=== PATIENT | male | born 1960 | race Two or more races ===

== ENCOUNTER 2017-07-31 09:21 | Outpatient (CLI) | payer OTHER | END 2017-07-31 15:45 | disposition home or self-care (01) | LOC: LAB 09:21 | DX: E03.9 Hypothyroidism, unspecified (principal); E88.9 Metabolic disorder, unspecified; E11.8 Type 2 diabetes mellitus with unspecified complications; E78.5 Hyperlipidemia, unspecified; D68.9 Coagulation defect, unspecified; N41.9 Inflammatory disease of prostate, unspecified; D64.9 Anemia, unspecified ==

== ENCOUNTER → 2017-09-10 | Outpatient (CLI) | payer OTHER | END | disposition home or self-care (01) | LOC: NUCLEAR 11:32 | DX: I65.23 Occlusion and stenosis of bilateral carotid arteries (principal); I87.2 Venous insufficiency (chronic) (peripheral); I73.9 Peripheral vascular disease, unspecified ==

== ENCOUNTER → 2017-09-14 07:24 | Outpatient (CLI) | payer OTHER | END | disposition home or self-care (01) | LOC: LAB 07:24 | DX: E88.9 Metabolic disorder, unspecified (principal); E78.5 Hyperlipidemia, unspecified ==

== ENCOUNTER → 2017-11-27 08:56 | Outpatient (CLI) | payer OTHER | END | disposition home or self-care (01) | LOC: LAB 08:56 | DX: E78.4 Other hyperlipidemia (principal); R73.09 Other abnormal glucose ==

== ENCOUNTER → 2018-03-11 08:01 | Outpatient (CLI) | payer OTHER | END | disposition home or self-care (01) | LOC: LAB 08:01 | DX: E88.89 Other specified metabolic disorders (principal); E78.4 Other hyperlipidemia; E11.9 Type 2 diabetes mellitus without complications ==

== ENCOUNTER 2018-05-14 08:24 | Outpatient (CLI) | payer OTHER | END 2018-05-14 08:38 | disposition home or self-care (01) | LOC: LAB 08:24 | DX: D64.89 Other specified anemias (principal); E88.89 Other specified metabolic disorders; E55.9 Vitamin D deficiency, unspecified; E56.1 Deficiency of vitamin K; E78.49 Other hyperlipidemia; E03.8 Other specified hypothyroidism; N41.8 Other inflammatory diseases of prostate ==

== ENCOUNTER 2018-07-27 08:06 | Outpatient (CLI) | payer OTHER | END 2018-07-27 09:28 | disposition home or self-care (01) | LOC: LAB 08:06 | DX: D64.89 Other specified anemias (principal); E88.89 Other specified metabolic disorders; E13.21 Other specified diabetes mellitus with diabetic nephropathy; E78.49 Other hyperlipidemia; N41.8 Other inflammatory diseases of prostate; E03.8 Other specified hypothyroidism ==

== ENCOUNTER → 2018-12-05 10:08 | Outpatient (CLI) | payer OTHER | END | disposition home or self-care (01) | LOC: LAB 10:08 | DX: D64.89 Other specified anemias (principal); E03.8 Other specified hypothyroidism; E78.49 Other hyperlipidemia; D68.8 Other specified coagulation defects; E11.9 Type 2 diabetes mellitus without complications; E88.89 Other specified metabolic disorders; N41.8 Other inflammatory diseases of prostate ==

== ENCOUNTER 2019-03-24 08:30 | Outpatient (CLI) | payer OTHER | END 2019-03-24 15:48 | disposition home or self-care (01) | LOC: LAB 08:30 | DX: E88.89 Other specified metabolic disorders (principal); E13.69 Other specified diabetes mellitus with other specified complication; E78.49 Other hyperlipidemia; N41.8 Other inflammatory diseases of prostate ==

== ENCOUNTER → 2019-09-12 08:09 | Outpatient (CLI) | payer OTHER | END | disposition home or self-care (01) | LOC: LAB 08:09 | DX: E88.89 Other specified metabolic disorders (principal); E78.49 Other hyperlipidemia; E13.69 Other specified diabetes mellitus with other specified complication ==

== ENCOUNTER 2019-12-16 10:40 | Outpatient (CLI) | payer OTHER | END 2019-12-16 15:00 | disposition home or self-care (01) | LOC: LAB 10:40 | DX: E88.89 Other specified metabolic disorders (principal); E13.69 Other specified diabetes mellitus with other specified complication; N41.8 Other inflammatory diseases of prostate; E78.49 Other hyperlipidemia ==

== ENCOUNTER 2019-12-20 10:05 | Outpatient (CLI) | payer OTHER | END 2019-12-20 12:54 | disposition home or self-care (01) | LOC: LAB 10:05 | DX: M54.5 Low back pain (principal); E88.81 Metabolic syndrome and other insulin resistance; E78.49 Other hyperlipidemia; D64.89 Other specified anemias; E11.9 Type 2 diabetes mellitus without complications ==

== ENCOUNTER 2020-02-08 08:19 | Outpatient (CLI) | payer OTHER | END 2020-02-08 08:31 | disposition home or self-care (01) | LOC: RAD 08:19 | PROVIDERS: ATTEND Obstetrics & Gynecology Maternal & Fetal Medicine | DX: M25.561 Pain in right knee (principal) ==

== ENCOUNTER 2020-02-27 08:43 | Outpatient (CLI) | payer OTHER | END 2020-02-27 09:59 | disposition home or self-care (01) | LOC: LAB 08:43 | PROVIDERS: ATTEND Urology | DX: D64.89 Other specified anemias (principal); N41.8 Other inflammatory diseases of prostate; E03.8 Other specified hypothyroidism; E88.89 Other specified metabolic disorders; E13.69 Other specified diabetes mellitus with other specified complication; E78.49 Other hyperlipidemia ==

== ENCOUNTER 2020-03-30 12:57 | Outpatient (CLI) | payer OTHER | END 2020-03-30 15:59 | disposition home or self-care (01) | LOC: LAB 12:57 | PROVIDERS: ATTEND Orthopaedic Surgery | DX: Z03.818 Encounter for observation for suspected exposure to other biological agents ruled out (principal) ==

== ENCOUNTER 2020-07-26 08:07 | Outpatient (CLI) | payer OTHER | END 2020-07-26 15:18 | disposition home or self-care (01) | LOC: LAB 08:07 | PROVIDERS: ATTEND Surgery | DX: E88.89 Other specified metabolic disorders (principal); E78.49 Other hyperlipidemia; E11.9 Type 2 diabetes mellitus without complications; N41.8 Other inflammatory diseases of prostate ==

== ENCOUNTER 2020-08-02 08:16 | Outpatient (CLI) | payer OTHER | END 2020-08-02 15:37 | disposition home or self-care (01) | LOC: RAD 08:16 | DX: M25.512 Pain in left shoulder (principal) ==

== ENCOUNTER 2020-09-05 08:48 | Outpatient (CLI) | payer OTHER | END 2020-09-05 08:56 | disposition home or self-care (01) | LOC: LAB 08:48 | DX: D64.89 Other specified anemias (principal); E88.89 Other specified metabolic disorders; M60.88 Other myositis, other site ==

== ENCOUNTER 2020-09-14 08:53 | Outpatient (CLI) | payer OTHER | END 2020-09-14 15:25 | disposition home or self-care (01) | LOC: LAB 08:53 | PROVIDERS: ATTEND Orthopaedic Surgery | DX: D64.89 Other specified anemias (principal); N39.0 Urinary tract infection, site not specified; D68.8 Other specified coagulation defects; B95.62 Methicillin resistant Staphylococcus aureus infection as the cause of diseases classified elsewhere; E88.89 Other specified metabolic disorders; Z03.818 Encounter for observation for suspected exposure to other biological agents ruled out ==

== ENCOUNTER → 2020-09-18 | Outpatient (CLI) | payer OTHER | END | disposition home or self-care (01) | LOC: RAD 10:15 | PROVIDERS: ATTEND Orthopaedic Surgery | DX: I10 Essential (primary) hypertension (principal) ==

== ENCOUNTER 2020-10-17 12:33 | Outpatient (CLI) | payer OTHER | END 2020-10-17 18:50 | disposition home or self-care (01) | LOC: LAB 12:33 | PROVIDERS: ATTEND Colon & Rectal Surgery | DX: E03.8 Other specified hypothyroidism (principal); E78.49 Other hyperlipidemia; D64.89 Other specified anemias; D68.8 Other specified coagulation defects; N41.8 Other inflammatory diseases of prostate; M85.88 Other specified disorders of bone density and structure, other site ==

== ENCOUNTER 2020-11-13 09:26 | Outpatient (CLI) | payer OTHER | END 2020-11-13 10:14 | disposition home or self-care (01) | LOC: RAD 09:26 | PROVIDERS: ATTEND Specialist | DX: M75.102 Unspecified rotator cuff tear or rupture of left shoulder, not specified as traumatic (principal) ==

== ENCOUNTER 2020-12-23 13:39 | Outpatient (CLI) | payer OTHER | END 2020-12-23 18:00 | disposition home or self-care (01) | LOC: LAB 13:39 | DX: M25.511 Pain in right shoulder (principal) ==

== ENCOUNTER → 2020-12-28 12:41 | Outpatient (CLI) | payer OTHER | END | disposition home or self-care (01) | LOC: LAB 12:41 | PROVIDERS: ATTEND Otolaryngology Otology & Neurotology | DX: Z00.00 Encounter for general adult medical examination without abnormal findings (principal) ==

== ENCOUNTER 2021-01-01 09:19 | Outpatient (CLI) | payer OTHER | END 2021-01-01 12:03 | disposition home or self-care (01) | LOC: LAB 09:19 | DX: Z03.818 Encounter for observation for suspected exposure to other biological agents ruled out (principal) ==

== ENCOUNTER 2021-01-07 11:43 | Outpatient (CLI) | payer OTHER | END 2021-01-07 15:00 | disposition home or self-care (01) | LOC: LAB 11:43 | PROVIDERS: ATTEND Emergency Medicine Pediatric Emergency Medicine | DX: D64.89 Other specified anemias (principal); Z20.818 Contact with and (suspected) exposure to other bacterial communicable diseases; E03.8 Other specified hypothyroidism; E88.89 Other specified metabolic disorders; E13.69 Other specified diabetes mellitus with other specified complication; D68.8 Other specified coagulation defects; N41.8 Other inflammatory diseases of prostate ==

== ENCOUNTER 2021-01-16 09:58 | Outpatient (CLI) | payer OTHER | END 2021-01-16 10:03 | disposition home or self-care (01) | LOC: LAB 09:58 | PROVIDERS: ATTEND General Practice | DX: Z20.828 Contact with and (suspected) exposure to other viral communicable diseases (principal) ==

== ENCOUNTER 2021-02-22 08:00 | Outpatient (CLI) | payer OTHER | END 2021-02-22 08:15 | disposition home or self-care (01) | LOC: PPH VACUNA | PROVIDERS: ATTEND Emergency Medicine Pediatric Emergency Medicine | DX: Z23 Encounter for immunization (principal) ==

== ENCOUNTER 2021-03-27 07:57 | Outpatient (CLI) | payer OTHER | END 2021-03-27 10:29 | disposition home or self-care (01) | LOC: LAB 07:57 | PROVIDERS: ATTEND Internal Medicine | DX: E88.89 Other specified metabolic disorders (principal); E78.49 Other hyperlipidemia ==

== ENCOUNTER → 2021-12-10 | Outpatient (CLI) | payer OTHER | END | disposition home or self-care (01) | LOC: LAB 09:07 | PROVIDERS: ATTEND Orthopaedic Surgery | DX: E88.9 Metabolic disorder, unspecified (principal); M85.80 Other specified disorders of bone density and structure, unspecified site; E55.9 Vitamin D deficiency, unspecified; E56.1 Deficiency of vitamin K; E78.49 Other hyperlipidemia; N40.0 Benign prostatic hyperplasia without lower urinary tract symptoms ==

== ENCOUNTER 2022-02-25 15:15 | Outpatient (CLI) | payer OTHER | END 2022-02-25 16:07 | disposition home or self-care (01) | LOC: ASH CLINIC 15:15 | PROVIDERS: ATTEND Emergency Medicine | DX: U07.1 COVID-19 (principal) ==

== ENCOUNTER 2022-04-11 11:50 | Outpatient (CLI) | payer OTHER | END 2022-04-11 12:05 | disposition home or self-care (01) | LOC: RAD 11:50 | PROVIDERS: ATTEND Colon & Rectal Surgery | DX: M25.511 Pain in right shoulder (principal); M25.532 Pain in left wrist ==

== ENCOUNTER 2022-04-11 14:54 | Outpatient (CLI) | payer OTHER | END 2022-04-11 14:57 | disposition home or self-care (01) | LOC: NUCLEAR 14:54 | PROVIDERS: ATTEND Colon & Rectal Surgery | DX: I25.10 Atherosclerotic heart disease of native coronary artery without angina pectoris (principal) ==

== ENCOUNTER → 2022-04-11 | Outpatient (CLI) | payer OTHER | END | disposition home or self-care (01) | LOC: LAB 11:37 | PROVIDERS: ATTEND Colon & Rectal Surgery | DX: E88.9 Metabolic disorder, unspecified (principal); E11.9 Type 2 diabetes mellitus without complications; E78.5 Hyperlipidemia, unspecified; D72.829 Elevated white blood cell count, unspecified; E05.90 Thyrotoxicosis, unspecified without thyrotoxic crisis or storm; N40.0 Benign prostatic hyperplasia without lower urinary tract symptoms; N39.0 Urinary tract infection, site not specified ==

== ENCOUNTER 2022-08-19 08:22 | Outpatient (CLI) | payer OTHER | END 2022-08-19 08:26 | disposition home or self-care (01) | LOC: LAB 08:22 | PROVIDERS: ATTEND Colon & Rectal Surgery | DX: D64.89 Other specified anemias (principal); E03.8 Other specified hypothyroidism; E88.89 Other specified metabolic disorders; E11.9 Type 2 diabetes mellitus without complications; E78.49 Other hyperlipidemia; D68.8 Other specified coagulation defects; N41.9 Inflammatory disease of prostate, unspecified ==

== ENCOUNTER 2023-03-10 08:14 | Outpatient (CLI) | payer OTHER ==
[2023-03-10 09:54] LABS: ALBUMIN 3.8 gm/dL (3.4-5.0); BILIRUBIN TOTAL 1.7 mg/dL (0.3-1.2); BILIRUBIN,CONJUGATED 0.3 mg/dL (0.0-0.2); BILIRUBIN,UNCONJUGATED 1.4 mg/dL (0.0-0.6); CALCIUM 8.8 mg/dL (8.5-10.1); CHOL HDL RATIO 1.3 (0-5.0); CREATININE SERUM 1.21 mg/dL (0.70-1.30); GFR 60.96; MAGNESIUM 2.1 mg/dL (1.8-2.4); POTASSIUM 3.96 mEq/L (3.5-5.1); PROSTATIC SPECIFIC ANTIGEN 2.01 NG/ML (0.010-4.00); TOTAL PROTEIN 6.8 gm/dL (6.4-8.2)
== END 2023-03-10 12:30 | disposition home or self-care (01) ==
LOC: LAB 08:14
PROVIDERS: ATTEND Anesthesiology
DX: Z01.84 Encounter for antibody response examination (principal); E88.89 Other specified metabolic disorders; E11.9 Type 2 diabetes mellitus without complications; E78.49 Other hyperlipidemia

== ENCOUNTER 2023-06-24 07:33 | Outpatient (CLI) | payer OTHER ==
[2023-06-24 08:30] LABS: CHOL HDL RATIO 1.4 (0-5.0)
== END 2023-06-24 08:47 | disposition home or self-care (01) ==
LOC: LAB 07:33
PROVIDERS: ATTEND Colon & Rectal Surgery
DX: E88.9 Metabolic disorder, unspecified (principal); E78.5 Hyperlipidemia, unspecified

== ENCOUNTER 2023-12-11 10:51 | Outpatient (CLI) | payer OTHER ==
[2023-12-11 11:32] LABS: HEMATOCRIT 43.9 % (39.0-48.0); HEMOGLOBIN 15.1 g/dL (13-16.00); MEAN CORPUSCULAR HEMOGLOBIN 31.7 pg (27.00-32.0); MEAN CORPUSCULAR HGB CONC 34.5 g/dl (32.0-36.0); PLATELET COUNT 177 K/uL (150-450); RED BLOOD COUNT 4.77 M/uL (4.00-6.00); RED CELL DISTRIBUTION WIDTH 12.6 % (11.5-14.5)
[2023-12-11 12:45] LABS: ALKALINE PHOSPHATASE 67 U/L (50-136); ALT/SGPT 25 U/L (12-78); ANION GAP 6 (10.0-20.0); AST/SGOT 13 U/L (15-37); BILIRUBIN TOTAL 1.46 mg/dL (0.3-1.2); BLOOD UREA NITROGEN 15 mg/dL (7-18); BUN CREA RATIO 14 (7.0-25.0); CALCIUM 8.9 mg/dL (8.5-10.1); CARBON DIOXIDE 31 mEq/L (21-32); CHLORIDE 107 mmol/L (98-107); CHOL HDL RATIO 1.3 (0-5.0); CHOLESTEROL 89 mg/dL (0-200); CREATININE SERUM 1.11 mg/dL (0.70-1.30); GFR 67.12; GLUCOSE FASTING 105 mg/dL (65-100); HDL 68 mg/dl (40-60); OSMOLALITY SERUM 281 MOSM/KG (275-295); POTASSIUM 4.22 mEq/L (3.5-5.1); SODIUM 140 mmol/L (136-145); TRIGLYCERIDES 129 mg/dL (0-150); VLDL 25 (0-39)
== END 2023-12-11 13:22 | disposition home or self-care (01) ==
LOC: LAB 10:51
PROVIDERS: ATTEND Anesthesiology
DX: E88.89 Other specified metabolic disorders (principal); D72.829 Elevated white blood cell count, unspecified; E78.5 Hyperlipidemia, unspecified; N41.8 Other inflammatory diseases of prostate; R05.2 Subacute cough

== ENCOUNTER 2024-05-12 07:50 | Outpatient (CLI) | payer OTHER ==
[2024-05-12 08:46] LABS: HEMOGLOBIN 15.1 g/dL (13-16.00); MEAN CELL VOLUME 90.8 fL (80.0-100.00); MEAN CORPUSCULAR HEMOGLOBIN 31.9 pg (27.00-32.0); MEAN CORPUSCULAR HGB CONC 35.1 g/dl (32.0-36.0); PLATELET COUNT 167 K/uL (150-450); RED BLOOD COUNT 4.73 M/uL (4.00-6.00); RED CELL DISTRIBUTION WIDTH 13.1 % (11.5-14.5)
[2024-05-12 09:56] LABS: ALBUMIN 3.9 gm/dL (3.4-5.0); BILIRUBIN TOTAL 1.17 mg/dL (0.3-1.2); CALCIUM 8.9 mg/dL (8.5-10.1); CHOL HDL RATIO 1.4 (0-5.0); CREATININE SERUM 1.23 mg/dL (0.70-1.30); GFR 59.62; GLOBULINA 2.8 G/DL (2.4-3.5); POTASSIUM 4.47 mEq/L (3.5-5.1); PROSTATIC SPECIFIC ANTIGEN 0.897 NG/ML (0.010-4.00); TOTAL PROTEIN 6.7 gm/dL (6.4-8.2)
== END 2024-05-12 07:53 | disposition home or self-care (01) ==
LOC: LAB 07:50
PROVIDERS: ATTEND Surgery
DX: E88.89 Other specified metabolic disorders (principal); D72.829 Elevated white blood cell count, unspecified; E78.5 Hyperlipidemia, unspecified; N41.9 Inflammatory disease of prostate, unspecified; E55.9 Vitamin D deficiency, unspecified

== ENCOUNTER 2024-08-24 08:00 | Outpatient (CLI) | payer OTHER ==
[2024-08-24 09:08] LABS: ALBUMIN 3.7 gm/dL (3.4-5.0); BILIRUBIN TOTAL 1.03 mg/dL (0.3-1.2); CALCIUM 9.1 mg/dL (8.5-10.1); CHOL HDL RATIO 1.7 (0-5.0); CREATININE SERUM 1.2 mg/dL (0.70-1.30); GFR 61.35; GLOBULINA 2.9 G/DL (2.4-3.5); MAGNESIUM 2.1 mg/dL (1.8-2.4); POTASSIUM 4.16 mEq/L (3.5-5.1); PROSTATIC SPECIFIC ANTIGEN 1.09 NG/ML (0.010-4.00); TOTAL PROTEIN 6.6 gm/dL (6.4-8.2)
== END 2024-08-24 08:07 | disposition home or self-care (01) ==
LOC: LAB 08:00
DX: E88.9 Metabolic disorder, unspecified (principal); E78.5 Hyperlipidemia, unspecified; N41.0 Acute prostatitis

== ENCOUNTER 2024-11-08 07:25 | Outpatient (CLI) | payer OTHER ==
[2024-11-08 09:22] LABS: ALBUMIN 3.9 gm/dL (3.4-5.0); BILIRUBIN TOTAL 1.15 mg/dL (0.3-1.2); CHOL HDL RATIO 1.5 (0-5.0); CREATININE SERUM 1.24 mg/dL (0.70-1.30); GFR 58.88; GLOBULINA 2.7 G/DL (2.4-3.5); MAGNESIUM 2.3 mg/dL (1.8-2.4); POTASSIUM 3.88 mEq/L (3.5-5.1); PROSTATIC SPECIFIC ANTIGEN 1.06 NG/ML (0.010-4.00); TOTAL PROTEIN 6.6 gm/dL (6.4-8.2)
[2024-11-08 10:47] LABS: PH,URINE 5.5 (5.0-8.0); URINE APPEARANCE Clear; URINE BILIRRUBIN Negative (NEGATIVE); URINE BLOOD Negative; URINE COLOR Yellow; URINE GLUCOSE Negative (NEGATIVE); URINE KETONE Trace (NEGATIVE); URINE LEUKOCYTE Negative; URINE NITRATE Negative; URINE PROTEIN Negative (NEGATIVE); URINE UROBILINOGEN 0.2 E.U./dl
[2024-11-08 10:48] LABS: URINE EPITHELIAL CELLS 1.7 uL (0.0-38.8); URINE RBC 24.3 uL (0.0-20.8); URINE WBC 2.5 uL (0.0-23.2)
[2024-11-08 11:02] LABS: URINE BACTERIA 3.6 uL (0.0-1933); URINE CAST 0.14 uL (0.0-1.40)
== END 2024-11-08 14:28 | disposition home or self-care (01) ==
LOC: LAB 07:25
PROVIDERS: ATTEND Specialist
DX: E88.89 Other specified metabolic disorders (principal); E78.49 Other hyperlipidemia; N39.0 Urinary tract infection, site not specified; D55.9 Anemia due to enzyme disorder, unspecified

== ENCOUNTER 2024-12-08 08:10 | Outpatient (CLI) | payer OTHER ==
[2024-12-08 08:44] LABS: BASO % 0.5 % (0.1-1.2); EOS # 0.22 (0.04-0.54); EOS % 2.9 % (0.7-7.0); LYMPH # 2.53 (1.18-3.74); LYMPH % 33.6 % (19.3-53.1); MEAN PLATELET VOLUME 10.00 fl (9.4-12.4); MONO # 0.59 (0.24-0.82); MONO % 7.8 % (4.7-12.5); NEUT # 4.13 (1.56-6.13); NEUT % 55.1 % (34.0-71.1); RED CELL DISTRIBUTION WIDTH 12.0 % (11.6-14.4)
[2024-12-08 09:11] LABS: INR 0.94
[2024-12-08 09:49] LABS: COL EPI 95 SECONDS (82-175)
== END 2024-12-08 08:19 | disposition home or self-care (01) ==
LOC: LAB 08:10
PROVIDERS: ATTEND Surgery
DX: D64.9 Anemia, unspecified (principal); D68.8 Other specified coagulation defects

== ENCOUNTER 2025-03-20 07:40 | Outpatient (CLI) | payer OTHER ==
[2025-03-20 08:56] LABS: ALT/SGPT 48.0 U/L (12-78); AST/SGOT 29.0 U/L (15-37); BILIRUBIN TOTAL 1.38 mg/dL (0.3-1.2); BUN CREA RATIO 13.0 (7.0-25.0); CHOL HDL RATIO 1.3 (0-5.0); CREATININE SERUM 1.21 mg/dL (0.70-1.30); GFR 60.57; GLOBULINA 2.7 G/DL (2.4-3.5); GLUCOSE FASTING 123.0 mg/dL (65-100); HDL 70.0 mg/dl (40-60); LDL 7.0 mg/dl (0-130); OSMOLALITY SERUM 284.0 MOSM/KG (275-295); VLDL 15.0 (0-39)
== END 2025-03-20 07:55 | disposition home or self-care (01) ==
LOC: LAB 07:40
PROVIDERS: ATTEND Surgery
DX: N39.0 Urinary tract infection, site not specified (principal); E88.9 Metabolic disorder, unspecified; E78.5 Hyperlipidemia, unspecified; D72.829 Elevated white blood cell count, unspecified; E55.9 Vitamin D deficiency, unspecified; N41.9 Inflammatory disease of prostate, unspecified

== ENCOUNTER 2025-04-05 07:56 | Outpatient (CLI) | payer OTHER ==
[2025-04-05 08:46] LABS: BASO % 0.5 % (0.1-1.2); EOS # 0.12 (0.04-0.54); EOS % 1.5 % (0.7-7.0); LYMPH # 1.89 (1.18-3.74); LYMPH % 23.0 % (19.3-53.1); MEAN PLATELET VOLUME 9.60 fl (9.4-12.4); MONO # 0.67 (0.24-0.82); MONO % 8.2 % (4.7-12.5); NEUT # 5.47 (1.56-6.13); NEUT % 66.6 % (34.0-71.1); RED CELL DISTRIBUTION WIDTH 12.0 % (11.6-14.4)
[2025-04-05 09:29] LABS: PHOSPHOKINASE CREATININE 114 U/L (39-308)
[2025-04-05 10:38] LABS: ERYTHROCYTE SEDIMENTATION RATE 2 mm/hr (0-20)
[2025-04-07 10:07] LABS: ALDOLASE 5.2 U/L (3.3-10.3)
== END 2025-04-05 08:29 | disposition home or self-care (01) ==
LOC: LAB 07:56
PROVIDERS: ATTEND Surgery
DX: D64.9 Anemia, unspecified (principal); E88.89 Other specified metabolic disorders